=== PATIENT | female | born 1960 | race Caucasian/White ===

== ENCOUNTER 2019-05-05 16:06 | Emergency (ER) | payer OTHER ==
[~2019-05-05] VITALS: Ht 162.6 cm; Wt 67.1 kg
--- OUTSIDE RECORDS SUMMARY | 2019-05-05 16:09 | XMS REPORT | Clinical Summary ---
Author Author [facility] Address Unknown Phone Unavailable Care Team Providers Care Centrifugal Supervisor Name Role Phone Marco Elaine MD PCP Allergies Comments Active Allergy Reactions Severity Noted Date Codeine 04/15/2017 Hydrocodone 04/15/2017 Tetracycline 04/15/2017 Medications End Date Status Medication Sig Dispensed Refills Start Date Active buPROPion (WELLBUTRIN) Take 100 mg 0 100 MG tablet by mouth 2 (two) times a day. Active propranolol (INDERAL) 80 Take 80 mg by 0 MG tablet mouth 3 (three) times a day. Active lisinopril Take 5 mg by 0 (PRINIVIL,ZESTRIL) 5 mg mouth daily. tablet Active SUPREP BOWEL PREP KIT 1 kit 1 Bottle 0 17.5-3.13-1.6 gram recon 7 soln Active Problems Problem Noted Date Hemorrhoids GERD (gastroesophageal reflux disease) Chronic diarrhea Anemia Dyspepsia Encounters Care Team Description Date Type Specialty Juan Daniel Pineda MD Abnormal mammogram 08/04/2018 Hospital Radiology Encounter Juan Daniel Pineda MD Abnormal mammogram 08/04/2018 Hospital Radiology Encounter Juan Daniel Pineda MD 07/28/2018 Hospital Radiology Encounter Juan Daniel Pineda MD Abnormal mammogram (Primary Dx); Screening breast examination 07/28/2018 Transcribe Access Orders Juan Daniel Pineda MD 07/26/2018 Hospital Radiology Encounter Juan Daniel Pineda MD 07/26/2018 Hospital Radiology Encounter Juan Daniel Pineda MD Tobacco use disorder; Intercostal pain 07/18/2018 Hospital Pulmonology Encounter Juan Daniel Pineda MD Tobacco use disorder (Primary Dx); Intercostal pain 07/14/2018 Transcribe Access Orders after 05/04/2018 Family History Medical History Relation Name Comments Pancreatitis Father Relation Name Status Comments Father Mother Social History Date Tobacco Use Types Packs/Day Years Used Former Smoker Drinks/Week oz/Week Comments Alcohol Use Yes Sex Assigned at Date Recorded Not on file Industry Job Start Date Occupation Not on file Not on file Not on file Travel End Travel History Travel Start No recent travel history available. Last Filed Vital Signs Not on file Plan of Treatment Health Maintenance Due Date Last Done Comments CERVICAL CANCER SCREENING 1983 COLONOSCOPY SCREENING 2012 SHINGLES VACCINES (#1) 2012 INFLUENZA VACCINE 03/09/2019 05/18/2018 BREAST CANCER SCREENING 08/04/2020 08/04/2018, 08/04/2018, 08/04/2018, Additional history exists Procedures Comments Procedure Name Priority Date/Time Associated Diagnosis SURGICAL PATHOLOGY Routine 08/04/2018 REQUEST 12:01 PM FITNESS AND WELLNESS DIRECTOR STEREOTACTIC BREAST Routine 08/04/2018 Abnormal mammogram BIOPSY RIGHT 11:53 AM FITNESS AND WELLNESS DIRECTOR MAMMO DIAGNOSTIC BIOPSY Routine 08/04/2018 Abnormal mammogram FOLLOW UP (NO CHARGE) 11:50 AM FITNESS AND WELLNESS DIRECTOR MAMMO EXTERNAL STUDY Routine 07/29/2018 2:31 PM FITNESS AND WELLNESS DIRECTOR US BREAST EXTERNAL STUDY Routine 07/28/2018 12:05 PM FITNESS AND WELLNESS DIRECTOR MAMMO EXTERNAL STUDY Routine 07/28/2018 12:05 PM FITNESS AND WELLNESS DIRECTOR SPIROMETRY, DIFFUSION, Routine 07/18/2018 Tobacco use disorder LUNG VOLUMES 9:50 AM FITNESS AND WELLNESS DIRECTOR Intercostal pain after 05/04/2018 Results * Surgical pathology request (08/04/2018 12:01 PM FITNESS AND WELLNESS DIRECTOR) [facility] DEPARTMENT OF PATHOLOGY AND GENOMIC MEDICINE Surgical See link below for PDF Lab [facility] DEPARTMENT pathology Report OF PATHOLOGY report AND GENOMIC MEDICINE Result status This is Final Report for [facility] DEPARTMENT [id number] OF PATHOLOGY AND GENOMIC MEDICINE Specimen Performing Organization Address City/State/Zipcode Phone Number [facility] DEPARTMENT OF [address] [place] [address] PATHOLOGY AND GENOMIC MEDICINE * Stereotactic Breast Biopsy Right (08/04/2018 11:53 AM FITNESS AND WELLNESS DIRECTOR) Specimen Addenda Addendum by Earlene Taylor MD on 08/11/2018 11:45 AM ADDENDUM #1 This case was reviewed on August 11, 2018. The pathology for the stereotactic biopsy of the right breast calcifications performed on 08/04/2018 yielded sclerosing adenosis, mild fibrosis, microcalcifications identified associated with a sclerosing adenosis and usual ductal hyperplasia as per report by pathologist Vickie Fonseca MD. Please see full pathology report for further details. The radiology and pathology are concordant. Recommend return to one year screening mammogram (due on July 2019). Results and recommendations were discussed with the patient by Margareth Castellano NP, on August 10, 2018 at 1705 p.m. by telephone. Narrative Performed At PROCEDURE: MAMMO DIAGNOSTIC BIOPSY FOLLOW UP, STEREOTACTIC BREAST BIOPSY RIGHT [facility] HISTORY: Patient is a 58-year-old female recently diagnosed with suspicious group of calcifications in the right breast upper-outer quadrant in outside facility. Stereotactic guided biopsy was recommended. CONSENT:Risks and benefits of the procedure was explained to the patient and a signed consent was obtained. TECHNIQUE:A time out was performed by the team prior to the procedure to verify the patient identity, lesion site(s), and pathology specimen labels. The stereotactic guided core needle biopsy was performed with a 9 gauge vacuum-assisted core needle under the usual aseptic conditions and 1% lidocaine with and without epinephrine local anesthetic. 6 core samples were obtained and submitted to pathology.A barrel-shaped. metal tissue marker was deployed at the biopsy site and confirmed with post procedure mammograms. The patient tolerated the procedure well without complications. SPECIMEN: A specimen radiograph confirms the presence of the targeted calcifications within the sample. IMPRESSION: Technically successful stereotactic guided core needle biopsy of calcifications in the right breast. Awaiting final histology. [id number] Performing Organization Address City/State/Zipcode Phone Number [facility] [address] [place] [address] * Mammo Diagnostic Biopsy Follow Up (No Charge) (08/04/2018 11:50 AM FITNESS AND WELLNESS DIRECTOR) Specimen Addenda Addendum by Earlene Taylor MD on 08/11/2018 11:45 AM ADDENDUM #1 This case was reviewed on August 11, 2018. The pathology for the stereotactic biopsy of the right breast calcifications performed on 08/04/2018 yielded sclerosing adenosis, mild fibrosis, microcalcifications identified associated with a sclerosing adenosis and usual ductal hyperplasia as per report by pathologist Vickie Fonseca MD. Please see full pathology report for further details. The radiology and pathology are concordant. Recommend return to one year screening mammogram (due on July 2019). Results and recommendations were discussed with the patient by Margareth Castellano NP, on August 10, 2018 at 1705 p.m. by telephone. Narrative Performed At PROCEDURE: MAMMO DIAGNOSTIC BIOPSY FOLLOW UP, STEREOTACTIC BREAST BIOPSY RIGHT [facility] HISTORY: Patient is a 58-year-old female recently diagnosed with suspicious group of calcifications in the right breast upper-outer quadrant in outside facility. Stereotactic guided biopsy was recommended. CONSENT:Risks and benefits of the procedure was explained to the patient and a signed consent was obtained. TECHNIQUE:A time out was performed by the team prior to the procedure to verify the patient identity, lesion site(s), and pathology specimen labels. The stereotactic guided core needle biopsy was performed with a 9 gauge vacuum-assisted core needle under the usual aseptic conditions and 1% lidocaine with and without epinephrine local anesthetic. 6 core samples were obtained and submitted to pathology.A barrel-shaped. metal tissue marker was deployed at the biopsy site and confirmed with post procedure mammograms. The patient tolerated the procedure well without complications. SPECIMEN: A specimen radiograph confirms the presence of the targeted calcifications within the sample. IMPRESSION: Technically successful stereotactic guided core needle biopsy of calcifications in the right breast. Awaiting final histology. [id number] Procedure Note Hm Interface, Radiology Results Incoming - 08/04/2018 12:07 PM FITNESS AND WELLNESS DIRECTOR PROCEDURE: MAMMO DIAGNOSTIC BIOPSY FOLLOW UP, STEREOTACTIC BREAST BIOPSY RIGHT HISTORY: Patient is a 58-year-old female recently diagnosed with suspicious group of calcifications in the right breast upper-outer quadrant in outside facility. Stereotactic guided biopsy was recommended. CONSENT: Risks and benefits of the procedure was explained to the patient and a signed consent was obtained. TECHNIQUE: A time out was performed by the team prior to the procedure to verify the patient identity, lesion site(s), and pathology specimen labels. The stereotactic guided core needle biopsy was performed with a 9 gauge vacuum- assisted core needle under the usual aseptic conditions and 1% lidocaine with and without epinephrine local anesthetic. 6 core samples were obtained and submitted to pathology. A barrel-shaped. metal tissue marker was deployed at the biopsy site and confirmed with post procedure mammograms. The patient tolerated the procedure well without complications. SPECIMEN: A specimen radiograph confirms the presence of the targeted calcifications within the sample. IMPRESSION: Technically successful stereotactic guided core needle biopsy of calcifications in the right breast. Awaiting final histology. [id number] Performing Organization Address City/State/Zipcode Phone Number [facility] [address] [place] [address] * Mammo External Study (07/29/2018 2:31 PM FITNESS AND WELLNESS DIRECTOR) Only the most recent of 2 results within the time period is included. Specimen Narrative Performed At This exam was not acquired at a [facility] facility and has not been [facility] interpreted by a [facility] Provider.The exam was imported into our imaging system for comparisons purposes. Performing Organization Address City/State/Zipcode Phone Number [facility] [address] [place] [address] * US Breast External Study (07/28/2018 12:05 PM FITNESS AND WELLNESS DIRECTOR) Specimen Narrative Performed At This exam was not acquired at a [facility] facility and has not been [facility] interpreted by a [facility] Provider.The exam was imported into our imaging system for comparisons purposes. Performing Organization Address City[facility] Phone Number [facility] [address] [place] [address] after 05/04/2018 Insurance Type Payer Benefit Subscriber ID Effective Phone Address Plan / Dates Group HMO CIGNA CIGNA OPEN xxxxxxxxxxx [id number] ACCESS/NET resent WORK Advance Directives For more information, please contact: [phone] Patient Neurosurgical Nurse Explanation Type Date Recorded Advance Directives, Living Will and Medical Power of Intelligence Operations Specialist Advance Directives, 07/15/2018 12:13 PM Living Will and Medical Power of Intelligence Operations Specialist
--- OUTSIDE RECORDS SUMMARY | 2019-05-05 16:09 | XMS REPORT | Clinical Summary ---
Author Author [facility] Address Unknown Phone Unavailable Care Team Providers Care Junior Network Administrator Name Role Phone PCP Unavailable Allergies Not on File Medications Not on file Active Problems Not on file Social History Date Tobacco Use Types Packs/Day Years Used Never Assessed Sex Assigned at Date Recorded Not on file Industry Job Start Date Occupation Not on file Not on file Not on file Travel End Travel History Travel Start No recent travel history available. Last Filed Vital Signs Not on file Plan of Treatment Health Maintenance Due Date Last Done Comments INFLUENZA VACCINE 05/09/2018 Results Not on fileafter 05/04/2018 Insurance Payer Benefit Subscriber ID Type Phone Address Plan / Group A[employer]NA - MGD CARE AET[employer] OPEN xxxxxxxxxx HMO/POS ACCESS HMO [place] (Home) [place] [address]
[2019-05-05] MEDS ORDERED: CLINDAMYCIN HC300 MG PO (17:41)
[2019-05-05] MEDS ORDERED: TYLENOL WITH C1 EACH PO (17:41)
== END 2019-05-05 17:58 | disposition home or self-care (01) ==
LOC: ER 16:06
DX: M79.661 Pain in right lower leg (principal); I10 Essential (primary) hypertension; J45.909 Unspecified asthma, uncomplicated
CPT/HCPCS: 93971; 99283